=== PATIENT | male | born 1990 | race Two or more races ===

== ENCOUNTER 2016-05-25 11:11 | Emergency (ER) | payer SELFPAY ==
[~2016-05-25] VITALS: Ht 180.3 cm; Wt 122.5 kg
[2016-05-25 11:20] VITALS: BP 141/84
[2016-05-25] MEDS ORDERED: cefTRIAXone SOD 1,000 MG VL IM ONE (12:30)
[2016-05-25] MEDS ORDERED: methylPREDNISolone SOD SUCC 125 MG/2 ML VL IM ONE (12:30)
== END 2016-05-25 13:00 | disposition home or self-care (01) ==
LOC: ER 11:11
DX: J03.90 Acute tonsillitis, unspecified (principal)
CPT/HCPCS: 71020; 96372; 99284; J0696; J2930

== ENCOUNTER 2018-06-26 18:09 | Emergency (ER) | payer OTHER ==
[~2018-06-26] VITALS: Ht 175.3 cm; Wt 122.5 kg
[2018-06-26 18:22] VITALS: BP 126/76
[2018-06-26] MEDS ORDERED: methylPREDNISolone SOD SUCC 125 MG/2 ML VL IM ONE (19:00)
[2018-06-26] MEDS ORDERED: cefTRIAXone SOD 1,000 MG VL IM ONE (19:00)
== END 2018-06-26 19:23 | disposition home or self-care (01) ==
LOC: ER 18:12
DX: L60.0 Ingrowing nail (principal)
CPT/HCPCS: 96372; 99283; J0696; J2930